=== PATIENT | male | born 1965 | race Caucasian/White ===

== ENCOUNTER → 2022-06-03 | Day surgery (SDC) | payer BC, OTHER ==
[2022-05-29 11:47] LABS: INR 0.99 (0.9-1.15); Partial Thromboplastin Time 27.5 sec (24.6-33.4)
[2022-05-29 11:52] LABS: Basophils # (auto) 0.1 10 ^3/uL (0-0.2); Basophils % (auto) 0.9 % (0.0-2.0); Eosinophils # (auto) 0.3 10 ^3/uL (0-0.8); Eosinophils % (auto) 3.1 % (0.0-7.0); Hematocrit 49.9 % (41.0-53.0); Hemoglobin 16.7 g/dL (13.5-17.5); Lymphocytes # (auto) 1.9 10 ^3/uL (0.4-5.4); Lymphocytes % (auto) 22.5 % (10.0-50.0); Mean Corpuscular Hemoglobin 29.7 pg (28.0-32.0); Mean Corpuscular Hgb Conc. 33.4 g/dL (32.0-36.0); Monocytes # (auto) 0.8 10 ^3/uL (0-1.3); Monocytes % (auto) 9.5 % (0.0-12.0); Neutrophils # (auto) 5.3 10 ^3/uL (1.6-8.6); Red Blood Cells 5.61 10^6/uL (4.5-5.90); White Blood Cell 8.3 10^3/uL (4.4-10.8)
[2022-05-29 12:10] LABS: Potassium 4.2 mmol/L (3.5-5.1); Urine Bacteria NONE SEEN /hpf (None Seen); Urine Blood Negative /uL (Negative); Urine Specific Gravity 1.029 (1.001-1.035); Urine WBC 1 /hpf (0 - 3)
[2022-05-29 12:27] LABS: Albumin 4.2 g/dL (3.4-5.0); BUN/Creatinine Ratio 18.5; Bilirubin, Total 1.1 mg/dL (0.2-1.0); Calcium 9.2 mg/dL (8.5-10.1); Total Protein 7.6 g/dL (6.4-8.2)
[~2022-06-03] VITALS: Ht 185.4 cm; Wt 117.9 kg
[~2022-06-03] MED LIST: ATORVASTATIN; DULO20CA PO; DexAMETHasone SOD PHOS 10MG/1ML VIAL INJ ONE; EMPA1TAB3 PO; GABA400C PO; GLYCOPYRROLATE 0.2 MG/ML 1ML VIAL ONE; HYDR12.56 PO; HYDR1TAB97 PO; KETOROLAC TROMETH 30 MG/ML 1ML VIAL ONE; LIDOCAINE 1% INJ PF 5ML AMP ONE; METF-372 PO; METH750T22 PO; NAP500T PO; ONDANSETRON HCL 4 MG/2 ML VIAL ONE; PROPOFOL 10 MG/ML 20 ML IV ONE; ceFAZolin 1GM/50ML 100 ML IV ONE
[2022-06-03 12:57] VITALS: BP 126/76
== END | disposition home or self-care (01) ==
LOC: SUR 09:29
PROVIDERS: ATTEND Podiatrist
DX: M21.622 Bunionette of left foot (principal); I10 Essential (primary) hypertension; E11.9 Type 2 diabetes mellitus without complications; E66.01 Morbid (severe) obesity due to excess calories; Z98.890 Other specified postprocedural states; Z90.49 Acquired absence of other specified parts of digestive tract; Z79.899 Other long term (current) drug therapy; Z20.822 Contact with and (suspected) exposure to COVID-19; M79.672 Pain in left foot
CPT/HCPCS: 28308; 36415; 80053; 81001; 82962; 85025; 85610; 85730; J0690; J1100; J1885; J2405; J2704; L3260; U0003

== ENCOUNTER → 2023-06-03 | Outpatient (CLI) | payer BC ==
[~2023-06-03] MED LIST changes: -DexAMETHasone SOD PHOS 10MG/1ML VIAL INJ ONE; -GLYCOPYRROLATE 0.2 MG/ML 1ML VIAL ONE; -HYDR12.56 PO; +HYDR12.59 PO; -KETOROLAC TROMETH 30 MG/ML 1ML VIAL ONE; -LIDOCAINE 1% INJ PF 5ML AMP ONE; +METH-1182 PO; -METH750T22 PO; -ONDANSETRON HCL 4 MG/2 ML VIAL ONE; -PROPOFOL 10 MG/ML 20 ML IV ONE; -ceFAZolin 1GM/50ML 100 ML IV ONE
[2023-06-03 11:52] LABS: Free T4 (Free Thyroxine) 1.15 ng/dL (0.89-1.76); T3 Total 1.1 ng/mL (0.60-1.81)
== END | disposition home or self-care (01) ==
LOC: LAB 10:42
DX: E05.00 Thyrotoxicosis with diffuse goiter without thyrotoxic crisis or storm (principal)
CPT/HCPCS: 36415; 84439; 84443; 84480

== ENCOUNTER → 2024-03-06 | Outpatient (CLI) | payer BC ==
[2024-03-06 11:47] LABS: Basophils # (auto) 0.1 10 ^3/uL (0-0.2); Eosinophils # (auto) 0.3 10 ^3/uL (0-0.8); Eosinophils % (auto) 4.5 % (0.0-7.0); Hematocrit 52.2 % (41.0-53.0); Hemoglobin 17.3 g/dL (13.5-17.5); Lymphocytes # (auto) 1.9 10 ^3/uL (0.4-5.4); Lymphocytes % (auto) 24.2 % (10.0-50.0); Mean Corpuscular Hemoglobin 30.9 pg (28.0-32.0); Mean Corpuscular Hgb Conc. 33.2 g/dL (32.0-36.0); Mean Corpuscular Volume 93.1 fL (80.0-100.0); Monocytes # (auto) 0.6 10 ^3/uL (0-1.3); Monocytes % (auto) 8.3 % (0.0-12.0); Neutrophils # (auto) 4.8 10 ^3/uL (1.6-8.6); Nucleated Red Blood Cells % 0.1 %; Platelet Count (auto) 325 10^3/uL (140-450); Red Blood Cells 5.61 10^6/uL (4.5-5.90); Red Cell Distribution Width 14.5 % (11.8-14.3); White Blood Cell 7.7 10^3/uL (4.4-10.8)
[2024-03-06 12:20] LABS: Alanine Aminotransferase 25 U/L (7-40); Alkaline Phosphatase 94 U/L (46-116); Anion Gap 7 (5-15); BUN/Creatinine Ratio 17.1 (10.0-20.0); Blood Urea Nitrogen 22 mg/dL (9-23); Calcium 10.4 mg/dL (8.7-10.4); Carbon Dioxide 24 mmol/L (20-31); Chloride 107 mmol/L (98-107); Glucose 147 mg/dL (74-106); Potassium 4.2 mmol/L (3.5-5.1); Sodium 138 mmol/L (136-145); Triglycerides 253 mg/dL (< 150)
[2024-03-06 12:21] LABS: Albumin 4.8 g/dL (3.2-4.8); LDL Cholesterol 118 mg/dL (< 100)
[2024-03-06 12:22] LABS: Aspartate Aminotransferase 32 U/L (13-40); Bilirubin, Total 0.3 mg/dL (0.2-1.0); Cholesterol 191 mg/dL (< 200); HDL Cholesterol 44 mg/dL (40-59); Total Protein 7.2 g/dL (5.7-8.2)
[2024-03-06 12:23] LABS: Creatinine, Urine 57.89 mg/dL (30.0-125.0)
== END | disposition home or self-care (01) ==
LOC: LAB 10:36
PROVIDERS: ATTEND Nurse Practitioner Family
DX: E11.22 Type 2 diabetes mellitus with diabetic chronic kidney disease (principal); N18.9 Chronic kidney disease, unspecified; E55.9 Vitamin D deficiency, unspecified
CPT/HCPCS: 36415; 80053; 80061; 82043; 82306; 82570; 83036; 84153; 84443; 85025

== ENCOUNTER 2025-04-09 11:15 | Emergency (ER) | payer BC ==
[~2025-04-09] VITALS: Ht 185.4 cm; Wt 117.0 kg
[2025-04-09 13:42] LABS: Hematocrit 52.5 % (41.0-53.0); Hemoglobin 17.5 g/dL (13.5-17.5); Mean Corpuscular Hemoglobin 30.7 pg (28.0-32.0); Mean Corpuscular Volume 92.2 fL (80.0-100.0); Nucleated Red Blood Cells % 0.0 %
[2025-04-09] MEDS: SODIUM CHLORIDE 0.9% 1,000 ML IV ONE (13:53)
[2025-04-09] MEDS: METOCLOPRAMIDE HCL 5MG/ml INJ 2ml VIAL IV ONE (13:53)
[2025-04-09 13:58] LABS: Chloride 106 mmol/L (98-107); Potassium 4.1 mmol/L (3.5-5.1); Sodium 143 mmol/L (136-145)
[2025-04-09 13:59] LABS: Anion Gap 9 (5-15); Calcium 10.0 mg/dL (8.7-10.4); Carbon Dioxide 28 mmol/L (20-31)
[2025-04-09 14:04] LABS: BUN/Creatinine Ratio 13.8 (10.0-20.0); Blood Urea Nitrogen 18 mg/dL (9-23)
[2025-04-09 14:05] LABS: Magnesium 2.4 mg/dL (1.6-2.6)
[2025-04-09 14:09] LABS: Glucose 111 mg/dL (74-106); Lipase 67 U/L (12-53)
--- NOTE | 2025-04-09 14:28 | ED.PDOC ---
GI ASSESSMENT HPI Comments 59M presents to the ER w/ prior MHx of High Lipids, HTN, DM:SHx of Appendectomy, Bunion removal and the c/c of ABD pain. Pt reports on having RUQ pain which radiates to the LUQ for the past 2 weeks associated w/ bilateral arm numbness which started yesterday and a burning sensation which also started yesterday. Denies any symptoms at this time. Patient denies any SOB, dizziness, numbness, weakness, tingling, fever, chills, or recent fall. Chief Complaint: Abdominal Pain Time Seen by MD: 14:00 Reviewed Notes: Nurses Notes, Medications, Allergies Allergies: Coded Allergies: NO KNOWN ALLERGIES (Unverified , 12/05/12) Home Meds Reported Medications Empagliflozin (Jardiance) 25 Mg Tab, 25 MG PO DAILY, TAB 05/29/22 Hydrochlorothiazide (Hydrochlorothiazide) 12.5 Mg Cap, 12.5 MG PO DAILY, CAP 05/29/22 Methocarbamol (Methocarbamol) 750 Mg Tab, 750 MG PO PRN, TAB 05/29/22 Duloxetine Hcl (Cymbalta) 20 Mg Cap, 20 MG PO DAILY, CAP 05/29/22 Gabapentin (Neurontin) 400 Mg Cap, 800 MG PO BID, CAP 05/29/22 Naproxen (NAPROSYN TABLET) 500 Mg Tb, 500 MG PO BID, TAB 05/29/22 Hydrocodone-Acetaminophen (Hydrocodone/Acetaminophen 5-325 mg) 1 Tab Tab, 1 TAB PO Q8HP, TAB 05/29/22 Metformin Hydrochloride (Metformin Hcl) 1,000 Mg Tab, 1000 MG PO BID, TAB 05/29/22 [Atorvastatin] No Conflict Check, 40 MG 12/05/12 Information Source: Patient Mode of Arrival: Ambulatory Timing: Weeks Duration: Since onset Prehospital treatment: None Quality: Aching (for ABD), Burning (For Chest) Vomitus: None Stool: Normal Severity: Moderate Recent: None Recent Hx of: None Pain Location: RUQ, RLQ Associated sign and symptoms: Abdominal Pain Past Medical History PAST MEDICAL HISTORY: DM, High Lipids, HTN Surgical History: Appendectomy Surgical History (Other): Bunion removal Family History Family History: Reviewed,noncontributory to illness, Unknown Social History Smoker: Non-Smoker Alcohol: Denies ETOH Use Drugs: Denies Drug Use Lives In: Home Constitutional: denies: chills, diaphoresis, fatigue, fever, malaise, sweats, weakness, others EENTM: denies: blurred vision, double vision, ear bleeding, ear discharge, ear drainage, ear pain, ear ringing, eye pain, eye redness, hearing loss, mouth pa in, mouth swelling, nasal discharge, nose bleeding, nose congestion, nose pain, photophobia, tearing, throat pain, throat swelling, voice changes, others Respiratory: denies: cough, hemoptysis, orthopnea, SOB at rest, shortness of breath, SOB with excertion, stridor, wheezing, others Cardiovascular: reports: chest pain (burning sensation); denies: dizzy spells, diaphoresis, Dyspnea on exertion, edema, irregular heart beat, left arm pain, lightheadedness, palpitations, PND, syncope, others Gastrointestinal: reports: abdominal pain; denies: abdomen distended, blood streaked bowels, constipated, diarrhea, dysphagia, difficulty swallowing, hematemesis, melena, nausea, poor appetite, poor fluid intake, rectal bleeding, rectal pain, vomiting, others Genitourinary: denies: burning, dysuria, flank pain, frequency, hematuria, incontinence, penile discharge, penile sore, pain, testicle pain, testicle swelling, urgency, others Neurological: reports: numbness (Bilateral arms); denies: dizziness, fainting, headache, left sided numbness, left sided weakness, paresthesia, pre-existing deficit, right sided numbness, right sided weakness, seizure, speech problems, tingling, tremors, weakness, others Musculoskeletal: denies: back pain, gout, joint pain, joint swelling, muscle pain, muscle stiffness, neck pain, others Integumetry: denies: bruises, change in color, change in hair/nails, dryness, laceration, lesions, lumps, rash, wounds, others Allergic/Immunocompromised: denies: Difficulty Healing, Frequent Infections, Hives, Itching, others Hematologic/Lymphatic: denies: anemia, blood clots, easy bleeding, easy bruising, swollen glands, others Endocrine: denies: excessive hunger, excessive sweating, excessive thirst, excessive urination, flushing, intolerance to cold, intolerance to heat, unexplained weight gain, unexplained weight loss, others Psychiatric: denies: anxiety, bipolar disorder, depression, hopeless, panic disorder, schizophrenia, sleepless, suicidal, others All Other Systems: Reviewed and Negative Physical Exam General Appearance: Mild Distress, Obese HEENT: Normal ENT Inspection, PERRL/EOMI, Pharynx Normal, TMs Normal Neck: Limited Range of Motion, Normal, Normal Inspection, Tender Lateral Respiratory: Chest Non-Tender, Lungs Clear, No Accessory Muscle Use, No Respiratory Distress, Normal Breath Sounds Cardiovascular: No Edema, No JVD, No Murmur, No Gallop, Normal Peripheral Pulses, Regular Rate/Rhythm Breast Exam: Deferred Gastrointestinal: No Organomegaly, Non Tender, No Pulsatile Mass, Normal Bowel Sounds, RUQ, Soft Genitalia: Deferred Pelvic: Deferred Rectal: Deferred Extremities: No calf tenderness, Normal capillary refill, Normal inspection, Normal range of motion, Non-tender, No pedal edema Musculoskeletal : Apperance: Normal Neurologic: Alert, umbrella frame maker II-XII nml as Tested, No Motor Deficits, Normal Affect, Normal Mood, No Sensory Deficits Cerebellar Function: Normal Reflexes: Normal Skin: Dry, Normal Color, Warm Peripheral Pulses: 1+ carotid (R), 1+ carotid (L) Lymphatic: No Adenopathy Was a procedure done? Was a procedure done?: No GI differential Dx Differential Diagnosis: Appendicitis, Diverticular disease, Gastritis/PUD, Hernia, Inflammatory BD, Pancreatitis, Dehydration, Diabetes/ DKA, Drug toxicity, Electrolyte Imbalance, Hypovolemia, Anemia X-Ray, Labs, Meds, VS Vital Signs Date Time Temp Pulse Resp B/P (MAP) Pulse Ox O2 Delivery O2 Flow Rate FiO2 04/09/25 17:15 98.9 84 16 162/89 (113) 97 98.9 04/09/25 15:11 85 04/09/25 12:22 98.2 94 16 132/82 (99) 97 98.2 04/09/25 12:22 Room Air* 0 21 04/09/25 11:17 98.4 98 17 148/98 98 98.4 Lab Test 04/09/25 13:10 Range/Units White Blood Count 7.5 4.4-10.8 10^3/uL Red Blood Count 5.70 4.5-5.90 10^6/uL Hemoglobin 17.5 13.5-17.5 g/dL Hematocrit 52.5 41.0-53.0 % Mean Corpuscular Volume 92.2 80.0-100.0 fL Mean Corpuscular Hemoglobin 30.7 28.0-32.0 pg Mean Corpuscular Hemoglobin Concent 33.3 32.0-36.0 g/dL Red Cell Distribution Width 15.2 H 11.8-14.3 % Platelet Count 277 140-450 10^3/uL Mean Platelet Volume 7.0 6.9-10.8 fL Neutrophils (%) (Auto) 64.2 37.0-80.0 % Lymphocytes (%) (Auto) 23.1 10.0-50.0 % Monocytes (%) (Auto) 8.7 0.0-12.0 % Eosinophils (%) (Auto) 3.4 0.0-7.0 % Basophils (%) (Auto) 0.6 0.0-2.0 % Neutrophils # (Auto) 4.8 1.6-8.6 10 ^3/uL Lymphocytes # (Auto) 1.7 0.4-5.4 10 ^3/uL Monocytes # (Auto) 0.7 0-1.3 10 ^3/uL Eosinophils # (Auto) 0.3 0-0.8 10 ^3/uL Basophils # (Auto) 0 0-0.2 10 ^3/uL Nucleated Red Blood Cells 0.0 % Sodium Level 143 136-145 mmol/L Potassium Level 4.1 3.5-5.1 mmol/L Chloride Level 106 98-107 mmol/L Carbon Dioxide Level 28 20-31 mmol/L Anion Gap 9 5-15 Blood Urea Nitrogen 18 9-23 mg/dL Creatinine 1.30 0.700-1.30 mg/dL Glomerular Filtration Rate Calc 63 >90 mL/min BUN/Creatinine Ratio 13.8 10.0-20.0 Serum Glucose 111 H 74-106 mg/dL Calcium Level 10.0 8.7-10.4 mg/dL Magnesium Level 2.4 1.6-2.6 mg/dL Lipase 67 H 12-53 U/L Current Medications Medications (Trade) Dose Ordered Sig/Ana Route Start Time Stop Time Status Last Admin Metoclopramide HCl (Reglan Injection) 10 mg ONCE ONCE IV 04/09/25 13:15 04/09/25 13:16 DC 04/09/25 13:53 Sodium Chloride 1,000 ml @ 150 mls/hr Q6H40M ONCE IV 04/09/25 13:15 04/09/25 19:54 04/09/25 13:53 X-Ray, Labs, Meds, VS Comment Course in the emergency department eventful patient came in complaining of abdominal pain and chest pain he said when he was working suddenly felt chest pain with some numbness in his both arms and neck pain blood pressure is 148/98 EKG shows normal sinus rhythm at 85 with a right axis deviation CBC is normal BNP negative Magnesium 2.[address] abdomen and pelvis shows gastritis BPH and large constipation Patient will be discharged home to follow up with his PCP Time of 1ST Reevaluation: 14:30 Reevaluation 1ST: Unchanged Patient Education/Counseling: Diagnosis, Treatment, Prognosis Family Education/Counseling: No Family Present SEPSIS Sepsis Screen Date sepsis recognized/suspect: Apr 09, 2025 Time Sepsis recognized/suspect: 1118 Recent Procedure: No On Antibiotic Therapy: No Respiratory Rate >20: No Heart Rate >90: No Temp<36 C (96.8 F) or >38.3 C: No SBP <90 or MAP <65 mmHG: No New Acute Mental Status Change: No Is the patient on CPAP, BIPAP,: No Physician Orders Urinalysis (04/09/25 13:03) Ct Ab Pel With Iv Con Only (04/09/25 13:03) Heplock Iv (04/09/25 13:03) Diesel Retrofit Designer (04/09/25 13:03) Blood Pressure (04/09/25 13:03) Sodium Chloride 0.9% (04/09/25 13:15) Vital Signs Date Time Temp Pulse Resp B/P (MAP) Pulse Ox O2 Delivery O2 Flow Rate FiO2 04/09/25 17:15 98.9 84 16 162/89 (113) 97 98.9 04/09/25 15:11 85 04/09/25 12:22 98.2 94 16 132/82 (99) 97 98.2 04/09/25 12:22 Room Air* 0 21 04/09/25 11:17 98.4 98 17 148/98 98 98.4 Laboratory Tests Test 04/09/25 13:10 White Blood Count 7.5 10^3/uL (4.4-10.8) Medications Medications Dose Ordered Sig/Ana Route Start Time Stop Time Status Last Admin Dose Admin Metoclopramide HCl 10 mg ONCE ONCE IV 04/09/25 13:15 04/09/25 13:16 DC 04/09/25 13:53 Sodium Chloride 1,000 ml @ 150 mls/hr Q6H40M ONCE IV 04/09/25 13:15 04/09/25 19:54 04/09/25 13:53 Departure 1 Departure Time of Disposition: 17:31 Impression: Primary Impression: Nonspecific abdominal pain Additional Impressions: Gastritis Qualified Codes: K29.30 - Chronic superficial gastritis without bleeding BPH (benign prostatic hyperplasia) Qualified Codes: N40.0 - Benign prostatic hyperplasia without lower urinary tract symptoms Constipation by delayed colonic transit Elevated lipase Hypertension Qualified Codes: 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 - Hypertension secondary to endocrine disorders History of diabetes mellitus Disposition: 01 HOME / SELF CARE / HOMELESS Condition: Fair Additional Instructions: To follow up with your PCP to order a PSA Also you are very constipated and he will be given medications for it e-Prescriptions Sennosides-Docusate Sodium (Senna Plus 50-8.6 mg) 1 Cap Cap 2 CAP PO DAILY for 10 Days, #20 CAP Prov: BRIDGETTE PINEDA MD 04/09/25 Sodium Phosphates (FLEET ENEMA SIX PACK) Enema Kesha 6 PACK RE DAILY for 6 Days, #1 EA Prov: BRIDGETTE PINEDA MD 04/09/25 Discharged With: Self Critical Care Note Critical Care Time?: No Stability Stability form required: No Heart Score Heart Score: Heart Score Response (Comments) Value History N/A 0 EKG N/A 0 Age 45-64 1 Risk Factors >3 or Hx ASHD 2 Troponin N/A 0 Total 3 I personally scribed for BRIDGETTE PINEDA MD ([email or web address]) on 04/09/25 at 14:28. Electronically submitted by Gabe Burns ([email or web address]). BRIDGETTE PINDEA MD Apr 09, 2025 14:28
--- NOTE | 2025-04-09 15:12 | ECG ---
[facility] Test Date: 2025-04-09 Test Time: 15:11:06 Pat Name: GABRIEL KELLY Department: ER Room: Gender: M [employer] Person: : 1965 Requested By: BRIDGETTE PINEDA Order Number: [id number] Reading MD: Gallo Gautam Measurements Intervals [place] Rate: 85 P: 82 KS: 153 QRS: 84 QRSD: 96 T: 39 QT: 371 QTc: 442 Interpretive Statements Sinus rhythm Borderline right axis deviation Baseline wander in lead(s) V5 Electronically Signed On 04-11-2025 17:45:51 PST by Gallo Gautam Please click the below link to view image of tracing.
--- NOTE | 2025-04-09 15:58 | DVH ---
Exam: CT CT AB PEL WITH IV CON ONLY History: Diffuse acute abdominal pain Comparison Study: None TECHNIQUE: Multidetector CT of the abdomen was performed from lung bases to pubic symphysis. Imaging was performed without IV contrast. Axial, coronal and sagittal multiplanar reformats were obtained from the axial data set by the technologist. Radiation Dose Information: CT Dose: CTDI volume is 24.42 mGy. Dose-length product is 1306.83 mGy*cm FINDINGS: The lung bases are clear. Partially visualized heart is unremarkable. Mild hepatomegaly with hepatic steatosis. Otherwise, liver, spleen, gallbladder, pancreas and adrenal glands are unremarkable. Kidneys , ureters and mildly distended Urinary bladder unremarkable. Prostate is enlarged measuring 5.1 x 6.7 x 6.3 cm. Mild gastric wall thickening. Small bowel loops are unremarkable. Appendix is not definitely visualized. Moderate to large amount of fecal material within the colon. No evidence of intraperitoneal free air or free fluid. No evidence of aortic aneurysm or dissection. No significant lymphadenopathy. Mild bilateral hip subcutaneous fatty edema. Soft tissues otherwise unremarkable. Sclerotic focus over the T8 superior posterior vertebral body , over the right iliac bone and over the left acetabulum which may represent small bone islands with Blastic lesions not excluded. No evidence of acute osseous abnormalities. IMPRESSION: Mild Gastric wall thickening which may be due to inadequate distention/ mild gastritis. Moderate to large amount of fecal material within the colon. Enlarged prostate. Recommend correlation with PSA. Appendix is not definitely visualized. Without visualization of the Appendix, can not exclude acute appendicitis.
[2025-04-09] MEDS: IOHEXOL 300 MG/ML 100ML BOTTLE IJ ONE (16:10)
[2025-04-09 17:15] VITALS: BP 162/89; PULSE 84; RESP 16; TEMP 98.9; O2SAT 97
[2025-04-09] MEDS ORDERED: SENN1CAP4 PO (17:39)
[2025-04-09] MEDS ORDERED: SODIENE35 RE (17:39)
[2025-04-09 19:34] LABS: Urine Protein, UAD 1+ (Negative)
== END 2025-04-09 18:10 | disposition home or self-care (01) ==
LOC: ER 11:15
DX: K29.70 Gastritis, unspecified, without bleeding (principal); R10.11 Right upper quadrant pain; K59.00 Constipation, unspecified; I10 Essential (primary) hypertension; E11.9 Type 2 diabetes mellitus without complications; R74.8 Abnormal levels of other serum enzymes; Z79.899 Other long term (current) drug therapy; Z90.49 Acquired absence of other specified parts of digestive tract
CPT/HCPCS: 36415; 74177; 80048; 81001; 83690; 83735; 85025; 93005; 96361; 96374; 99285; J2765; J7030; Q9967

== ENCOUNTER → 2025-05-15 | Outpatient (CLI) | payer BC ==
[~2025-05-15] VITALS: Ht 185.4 cm; Wt 108.9 kg
[~2025-05-15] MED LIST changes: +EZET10TA22 PO; +ROSU10TA16 PO; +SENN1CAP4 PO; +SODIENE35 RE; +TAMS0.4C39 PO
[2025-05-15 10:54] LABS: Nucleated Red Blood Cells % 0.0 %
[2025-05-15 10:57] LABS: Hematocrit 55.4 % (41.0-53.0); Hemoglobin 18.8 g/dL (13.5-17.5); Mean Corpuscular Hemoglobin 30.5 pg (28.0-32.0); Mean Corpuscular Volume 89.9 fL (80.0-100.0)
[2025-05-15 11:00] LABS: Urine Protein, UAD 1+ (Negative)
[2025-05-15 11:09] LABS: INR 1.04 (0.9-1.15); Partial Thromboplastin Time 26.8 SEC (24.5-34.5); Prothrombin Time 11.0 sec (9.3-11.8)
[2025-05-15 11:15] LABS: Alanine Aminotransferase 30 U/L (7-40); Alkaline Phosphatase 98 U/L (46-116); Anion Gap 10 (5-15); BUN/Creatinine Ratio 9.6 (10.0-20.0); Blood Urea Nitrogen 13 mg/dL (9-23); Carbon Dioxide 26 mmol/L (20-31); Chloride 105 mmol/L (98-107); Potassium 4.3 mmol/L (3.5-5.1); Sodium 141 mmol/L (136-145); Total Protein 7.7 g/dL (5.7-8.2)
[2025-05-15 11:16] LABS: Albumin 5.2 g/dL (3.2-4.8); Bilirubin, Total 0.5 mg/dL (0.2-1.0); Calcium 10.5 mg/dL (8.7-10.4); Glucose 140 mg/dL (74-106)
== END | disposition home or self-care (01) ==
LOC: LAB 10:21 → EDSTATUS 05-23 10:22
PROVIDERS: ATTEND Podiatrist
DX: Z01.812 Encounter for preprocedural laboratory examination (principal); M76.11 Psoas tendinitis, right hip; M77.31 Calcaneal spur, right foot; M76.61 Achilles tendinitis, right leg; Z79.899 Other long term (current) drug therapy
CPT/HCPCS: 36415; 80053; 81001; 85025; 85610; 85730